=== PATIENT | male | born 1995 | race African-American/Black ===

== ENCOUNTER 2017-05-13 17:56 | Emergency (ER) | payer MEDICAID ==
[~2017-05-13] VITALS: Ht 190.5 cm; Wt 98.0 kg
[2017-05-13] MEDS ORDERED: INVEGA SUS78 MG/0.5 IM (18:35)
[2017-05-13] MEDS ORDERED: TRAZODONE HCL50 MG ORAL (18:35)
[2017-05-13 18:56] VITALS: BP 122/70
--- NOTE | 2017-05-13 20:44 | Emergency Room Report ---
History of Present Illness General Chief Complaint: General Complaint Source: Patient, Family Member Present Illness HPI The patient is a 21-year-old male accompanied by father for medication abuse. The patient is currently receiving care at a rehabilitation facility for drug/ alcohol use. He has trazodone prescribed to him for sleep and is to take only 50 mg. He took a total of 250 mg earlier today. His facility has asked for him to be medically cleared now. He states that he took this in order to "feel high". He denies any suicidal intent or ideation. He denies any symptoms including nausea, vomiting, blurred vision, chest pain, shortness of breath Allergies: Coded Allergies: No Known Allergies (Unverified , 05/13/17) Patient History Past Medical History: see triage record Pertinent Family History: none Reviewed Nursing Documentation: PMH: Agreed, PSxH: Agreed Nursing Documentation-PMH Past Medical History: No History, Except For History Of Psychiatric Problem: Yes - Anxiety, Bipolar Review of Systems All Other Systems: negative except mentioned in HPI Physical Exam Vital Signs Date Time Temp Pulse Resp B/P (MAP) Pulse Ox O2 Delivery O2 Flow Rate FiO2 05/13/17 18:27 97.7 79 16 136/79 98 Room Air Sp02 EP Interpretation: reviewed, normal General Appearance: no apparent distress, alert, GCS 15, non-toxic Head: normocephalic, atraumatic Eyes: bilateral eye normal inspection, bilateral eye PERRL ENT: hearing grossly normal, normal pharynx, no angioedema, normal voice Neck: full range of motion, supple/symm/no masses Respiratory: chest non-tender, lungs clear, normal breath sounds, speaking full sentences Cardiovascular #1: regular rate, rhythm, no edema Genitourinary: normal inspection, no CVA tenderness Musculoskeletal: back normal, gait/station normal, normal range of motion, non- tender Neurologic: alert, oriented x3, responsive, motor strength/tone normal, sensory intact, speech normal Psychiatric: judgement/insight normal, memory normal, mood/affect normal, no suicidal/homicidal ideation Skin: normal color, no rash, warm/dry, well hydrated Medical Decision Making PA Attestation Dr. Mann is my supervising physician. Patient management was discussed with my supervising physician Diagnostic Impression: Primary Impression: Misuse of drugs ER Course The patient is a 21-year-old male accompanied by father for medication abuse. Differential diagnoses considered but not limited to suicidal ideation, homicidal ideation, depression, overdose, among others PE: Vitals stable. NAD The patient is alert and oriented x3 PERRL EOMI RRR Lungs CTA bilat The father with the patient states that medication was taken more than 4 hours ago now. He states that the patient is behaving normally. The patient is medically cleared and will be discharged home. He was informed of the dangers of taking medications more than prescribed. Last Vital Signs Date Time Temp Pulse Resp B/P (MAP) Pulse Ox O2 Delivery O2 Flow Rate FiO2 05/13/17 18:56 97.7 61 18 122/70 99 Room Air Status: improved Disposition: HOME, SELF-CARE Condition: Improved Referrals: [facility],REFERRING (PCP) Additional Instructions: The patient is medically cleared and should return to facility for further treatment. He will take his prescribed medications as directed. Do not abuse your medications as this may lead to significant organ injury and even . Return to the emergency department for any reason including altered level of consciousness, dizziness, vomiting, fever, shortness of breath, chest pain JOAQUÍN PAREDES May 13, 2017 20:44
== END 2017-05-13 19:00 | disposition home or self-care (01) ==
LOC: EMR 18:50
DX: F19.10 Other psychoactive substance abuse, uncomplicated (principal); F41.9 Anxiety disorder, unspecified; F31.9 Bipolar disorder, unspecified
CPT/HCPCS: 99282